=== PATIENT | female | born 1970 | race Caucasian/White ===

== ENCOUNTER → 2017-02-10 13:17 | Outpatient (CLI) | payer MEDICAID ==
[~2017-02-10 13:17] MED LIST: CYCLOBENZAPRINE10 MG PO; PERCOCET 10/3251 TA1 PO; PROZAC10 MG PO; REXULTI1 MG PO; TORADOL10 MG PO
== END | disposition home or self-care (01) ==
LOC: D.MRI 13:17
DX: M25.512 Pain in left shoulder (principal)

== ENCOUNTER 2017-03-03 05:09 | Day surgery (SDC) | payer MEDICAID ==
[2017-03-02 09:15] LABS: HEMATOCRIT 43.5 % (36.0-48.0); HEMOGLOBIN 14.6 g/dL (12-16); MCH 30.9 pg (26.0-34.0); MCHC 33.6 g/dL (31.0-37.0); MCV 92.2 fL (80.0-100.0); MEAN PLATELET VOLUME 11.3 fL (7.4-10.4); RBC 4.72 10x6/uL (4.00-5.40); RDW 12.7 % (11.5-14.5); WBC 13.1 10x3/uL (4.8-10.8)
[~2017-03-03 05:09] MED LIST changes: -PERCOCET 10/3251 TA1 PO; -TORADOL10 MG PO
[2017-03-03 08:11] VITALS: BMI 31.9
[2017-03-03] MEDS ORDERED: PERCOCET 10/3251 TA1 PO (12:10)
[2017-03-03] MEDS ORDERED: TORADOL10 MG PO (12:11)
--- NOTE | 2017-03-03 14:45 | OP ---
PATIENT NAME: SUNITHA CORDOVA MEDICAL RECORD: [id number] :68 LOCATION:[facility] ADMISSION DATE: SURGEON: JOÃO CALLEJAS DO DATE OF OPERATION: 03/03/2017 PROCEDURES PERFORMED: Left shoulder arthroscopy with subacromial decompression, labral debridement, mini open rotator cuff repair, and biceps tenodesis. PREOPERATIVE DIAGNOSES: Superior labrum anterior and posterior tear, rotator cuff tear, subacromial impingement. POSTOPERATIVE DIAGNOSES: Superior labrum anterior and posterior tear, rotator cuff tear, subacromial impingement. INDICATIONS: Ms. Cordova is a 46-year-old female that presented to my office with longstanding left shoulder pain and weakness. She has been dealing with it for quite some time and ended up getting an MRI, which demonstrated a rotator cuff tear as well as possible SLAP tear and some subacromial impingement noted with some tendinosis of the supraspinatus. This was discussed with her and asked if she wanted to attempt nonoperative treatment as far as physical therapy and injections and she replied that she did not. She has been dealing with the pain and weakness long enough and she wanted to gain function back. Once this was discussed with her, she was consented for the procedure, and aware of the risks and benefits of it. SURGEON: João Callejas DO BLOOD LOSS: Minimal. COMPLICATIONS: None. DESCRIPTION OF PROCEDURE: The patient was given a block in the preoperative area by anesthesia and taken to the operative suite, laid in supine position, given general anesthetic. Prior to general anesthetic, she was laid in the right lateral decubitus position and she had an axillary roll placed under her axilla and she was put in the lateral position when she was given anesthetic. The beanbag was then placed and she was secured with a safety strap on the bed. The left arm was prepped and draped in sterile fashion. Once this was done, time-out was performed. The patient was given 900 mg of clindamycin preoperatively. Once time-out was performed, everyone was in agreement that the left side was the correct side and correct site and correct patient and correct procedure. Once this was done, 60 mL of normal saline was entered into the joint. We did not get good backflow indicating there was likely a large rotator cuff tear. The 11 blade scalpel was then used to establish posterior portal. Trocar was entered into the joint itself and a large rotator cuff tear on the supraspinatus was seen as well as very frayed biceps and labrum. This was noted and anterior portal was established. Shaver was brought in to clean up the labrum and debrided and pictures were taken. The burner was then brought in and the biceps was tenotomized. The subscapularis was inspected and did not seem to have any tears, was in good position. 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 Once this was done, the scope was taken out of the joint itself and placed in the subacromial space. A bursectomy was performed at that time and then again the cuff was seen on the bursal side, and the remainder of OPERATIVE REPORT [id number] SUNITHA CORDOVA the humerus was debrided slightly. The subacromial decompression was then done first with the burner to clean off the acromion and the spur was taken down on the acromion. Distal clavicle was not seen to have any large spurs, so therefore it was not excised. Once this was done, we then converted to a mini open. A longitudinal incision was made from the acromion to about 4 cm distal to that. Careful dissection was made down to the deltoid fascia. Deltoid fascia was incised carefully and the rotator cuff was encountered. Retractor was then put in place and the greater tuberosity was decorticated using the shaver. Once we had good surface there, a punch was placed first posteriorly and then an anchor was placed in the hole and then a punch was placed anteriorly and the Speed[employer] anchor was placed anteriorly as well. A scorpion was then used to first grab anteriorly and then posteriorly with the FiberTape, and the suture ends were cut and crossed in order to make the repair. First the anterior anchor was placed just distal to the tendon tear itself anteriorly and than posteriorly. Sutures were tensioned appropriately to get a good cuff repair down to the humerus. Once this was done and the repair seemed to be very good and tight, sutures were cut. After this was done, the wound was irrigated and attention was then drawn to the biceps tenodesis site. An incision was made just at the pect insertion of the humerus. Careful dissection was made down to the humerus itself and the biceps tendon was encountered and pulled out through the wound, whipstitched and then a button was placed on the sutures. The hole was then drilled on the humerus itself and the button was placed into that hole and flipped unicortically. The biceps tendon was then seemed to be tensioned properly and a single stitch was made through the excess bicep tendon and then the suture was tied down. The rest of the remaining biceps tendon was removed and the suture was tied. That wound was irrigated as well as the rotator cuff repair site and the deltoid fascia was closed with 0 Vicryl in a [id number] fashion, then the skin at the mini open site for the rotator cuff repair as well as the bicep tenodesis site was closed with 2-0 Vicryl in an inverted interrupted fashion and then 4-0 Monocryl was run subcuticularly on the skin. Then 4-0 inverted interrupted sutures to single one were made in the anterior and posterior portal sites. Once this was done, Dermabond was placed over the sites. Telfa and Tegaderm were placed over each of the wound. The patient was placed in a sling and awaken and taken to recovery in stable condition. TRANSINT:[id number] Voice Confirmation ID: [id number] DOCUMENT ID: [id number] JOÃO CALLEJAS DO at 1445 CC: [id number] DICTATION DATE: 03/03/17 1206 [employer]: 03/03/17 1410 [facility] [address] [place] [address]
== END 2017-03-03 14:10 | disposition home or self-care (01) ==
LOC: D.OPS 05:09 → D.PAN 09:30 → D.OPS 14:10
PROVIDERS: Anesthesiology
DX: S43.432A Superior glenoid labrum lesion of left shoulder, initial encounter (principal); M75.102 Unspecified rotator cuff tear or rupture of left shoulder, not specified as traumatic; M75.42 Impingement syndrome of left shoulder; M94.212 Chondromalacia, left shoulder; Z01.812 Encounter for preprocedural laboratory examination